=== PATIENT | female | born 1940 | race African-American/Black ===

== ENCOUNTER 2022-02-15 12:18 | Emergency (ER) | payer OTHER ==
[2022-02-15 12:30] VITALS: BMI 26.9
[2022-02-15 15:06] LABS: BASO % 0.6 % (0-2.0); EOS % 1.3 % (0-4.5); HEMATOCRIT 35.9 % (32.4-45.2); HEMOGLOBIN 11.7 GM/dL (10.7-15.3); LYMPH % 29.2 % (8-40); MCH 31.7 pg (25.7-33.7); MCHC 32.6 g/dl (32.0-36.0); MEAN PLT VOLUME 10.5 fl (7.5-11.1); MONO % 12.3 % (3.8-10.2); NEUT % 56.6 % (42.8-82.8); PLATELET COUNT 224 10^3/uL (134-434); RDW 13.6 % (11.6-15.6); WHITE BLOOD COUNT 6.9 K/mm3 (4.0-10.0)
[2022-02-15 15:13] LABS: INR 1.02 (0.83-1.09); PROTHROMBIN TIME (PATIENT) 11.7 SEC (9.7-13.0)
[2022-02-15 15:16] LABS: ACTIVATED PTT 27.6 SECONDS (25.2-36.5)
[2022-02-15 15:32] LABS: ALBUMIN 3.6 g/dl (3.4-5.0); BLOOD UREA NITROGEN 15.3 mg/dL (7-18); CALCIUM 9.5 mg/dL (8.5-10.1); MAGNESIUM 2.2 mg/dL (1.8-2.4)
[2022-02-15 15:35] LABS: CREATININE 0.7 mg/dL (0.55-1.3)
[2022-02-15 15:37] LABS: BILIRUBIN,TOTAL 0.2 mg/dL (0.2-1); TOT PROT 6.9 g/dl (6.4-8.2)
[2022-02-15 17:53] LABS: PH,URINE 7.5 (5.0-8.0); URINE APPEARANCE CLEAR; URINE BILIRUBIN NEGATIVE (NEGATIVE); URINE COLOR YELLOW; URINE GLUCOSE (UA) NEGATIVE (NEGATIVE); URINE KETONE NEGATIVE (NEGATIVE); URINE LEUK ESTERASE NEGATIVE (NEGATIVE); URINE NITRITE NEGATIVE (NEGATIVE); URINE PROTEIN NEGATIVE (NEGATIVE)
[2022-02-15 18:21] VITALS: BP 132/69; PULSE 82; RESP 16; TEMP 98
== END 2022-02-15 18:22 | disposition home or self-care (01) ==
LOC: JER 12:18
DX: J33.9 Nasal polyp, unspecified (principal); R46.89 Other symptoms and signs involving appearance and behavior
CPT/HCPCS: 0241U-QW; 36415; 70450-TC; 71045-TC-FY; 80053; 81003; 83735; 85025; 85610; 85730; 87086; 99285-25